=== PATIENT | male | born 1960 | race Hispanic/Latino ===

== ENCOUNTER 2022-10-14 06:31 | Day surgery (SDC) | payer OTHER ==
[2022-10-14] MEDS ORDERED: PROPOFOL 40 ML ONE (07:44)
== END 2022-10-14 08:57 | disposition home or self-care (01) ==
LOC: CSHSDC 06:31
PROVIDERS: ATTEND Internal Medicine Gastroenterology
PROC: 0DJD8ZZ Inspection of Lower Intestinal Tract, Via Natural or Artificial Opening Endoscopic (ICD-10-PCS; principal; 2022-10-14)
DX: Z12.11 Encounter for screening for malignant neoplasm of colon (principal); I10 Essential (primary) hypertension
CPT/HCPCS: J2704

== ENCOUNTER 2023-05-02 13:44 | Outpatient (CLI) | payer OTHER ==
[~2023-05-02 13:44] MED LIST: Magnevist 469MG/ML 20 ML VIAL ONE
== END 2023-05-02 13:45 | disposition home or self-care (01) ==
LOC: CSHMRI 13:44
PROVIDERS: ATTEND Urology
DX: C61 Malignant neoplasm of prostate (principal); N40.2 Nodular prostate without lower urinary tract symptoms; N42.89 Other specified disorders of prostate
CPT/HCPCS: 72197; 82565; A9579